=== PATIENT | male | born 1995 | race Caucasian/White ===

== ENCOUNTER 2023-05-05 11:50 | Emergency (ER) | payer BC, SELFPAY ==
--- NOTE | 2023-05-05 11:57 | ED.EXTPRO ---
HPI - Extremity Problem General Chief complaint: Extremity Problem,Nontraumatic Stated complaint: Both Feet Swelling Time Seen by Provider: 05/05/23 11:55 Source: patient Mode of arrival: ambulatory Limitations: no limitations History of Present Illness HPI Narrative: Carl is a 28-year-old male patient presenting to the clinic today with complaints of bilateral feet swelling and rash to the medial aspects of bilateral feet. Reports the rash just started last night. States that is itchy and blistery appearing. He denies any fever or chills. No chest pain or shortness of breath. No history of cardiomegaly or congestive heart failure. Has been on amlodipine and lisinopril since he was 16 years of age. Related Data Home Medications Medication Instructions Recorded Confirmed amlodipine 10 mg tablet 10 mg PO DAILY 05/05/23 05/05/23 lisinopril 20 mg tablet 20 mg PO DAILY 05/05/23 05/05/23 venlafaxine 150 mg 150 mg PO DAILY 05/05/23 05/05/23 capsule,extended release 24 hr Allergies Allergy/AdvReac Type Severity Reaction Status Date / Time No Known Allergies Allergy Verified 05/05/23 12:18 Review of Systems Review of Systems: Pertinent positives per HPI. Patient denies any fever, chills, headache, visual changes, dizziness, cough, runny nose, sore throat, shortness of breath, chest pain, palpitations, nausea, vomiting, diarrhea, constipation, abdominal pain, or any urinary issues. PMFSH Comments At the time of my signature, I reviewed and agree with the nursing past medical, surgical, social, and family history. There is no relevant family history pertinent to the patient complaint. Exam Narrative: General: Well-developed, well nourished, in no apparent distress Head: Normocephalic, atraumatic. Cardio: Regular rate and rhythm, s1 and s2 normal, no murmur appreciated. Resp: Clear to auscultation bilaterally, no rhonchi, rales, wheezing or rubs. Integumentary: Town[place], warm, and dry, intact without lesion, red, raised, blister-like rash to medial aspect of bilateral feet with mild swelling, trace of edema and ankle/foot bilaterally Course Course Emergency Course: Portions of this record may have been created with voice recognition software. Level of Care: Express Care Visit Vital Signs Vital signs: Vital signs reviewed MDM - Extremity (Nontraumatic) MDM Narrative Medical decision making narrative: At the time of visit patient is resting comfortably on the exam table. I suspect the patient may have dermatitis to bilateral medial feet as the rash is blistery appearing and itching. No obvious sign of fungal infection. Will prescribe triamcinolone cream for the patient but on his feet have in follow-up with his PCP. Differential Diagnosis Differential diagnosis: Likely herpes zoster, cellulitis and other (Dermatitis) Discharge Plan Discharge Clinical Impression: Dermatitis Patient Disposition: Home, Self-Care Condition: Stable Instructions: Antibiotic Form, Dermatitis (ED) Additional Instructions: I feel as though this is likely a dermatological rash Apply triamcinolone cream to the affected areas twice daily x7 days May take Benadryl 25-50 mg every 6 hours as needed for itching Follow-up with your PCP in 3-5 days if symptoms persist or sooner if they worsen Prescriptions: New triamcinolone acetonide 0.1 % cream 1 applic topical BID 7 Days Qty: 30 0RF No Action lisinopril 20 mg tablet 20 mg PO DAILY venlafaxine 150 mg capsule,extended release 24hr 150 mg PO DAILY amlodipine 10 mg tablet 10 mg PO DAILY Follow-up/Referrals: UNKNOWN,DOCTOR [Non-Staff] - Time of Disposition: 12:14 Quality NIHSS Nursing Documentation ED NIHSS nursing documentation: reviewed/agree
[2023-05-05 12:06] VITALS: BP 131/95; PULSE 96; RESP 18; TEMP 36.9; O2SAT 100
== END 2023-05-05 12:20 | disposition home or self-care (01) ==
PROVIDERS: Emergency Provider Nurse Practitioner Family
DX: L30.9 Dermatitis, unspecified (principal); I10 Essential (primary) hypertension
CPT/HCPCS: 99203; G0463